=== PATIENT | female | born 1955 | race Caucasian/White ===

== ENCOUNTER 2017-01-14 13:47 | Emergency (ER) | payer MEDICAID ==
[~2017-01-14] VITALS: Ht 170.2 cm; Wt 65.0 kg
[2017-01-14 13:54] VITALS: PULSE 94; RESP 14; TEMP 98.4; O2SAT 98
[2017-01-14 14:15] VITALS: RESP 18; O2SAT 97
[2017-01-14] MEDS ORDERED: METOCLOPRAMIDE HCL 10 MG/2 ML VIAL IVP ONE (14:15)
[2017-01-14] MEDS ORDERED: SODIUM CHLORIDE 0.9% FLUSH 5 ML FLUSH IVF PRN (14:15)
[2017-01-14] MEDS ORDERED: diphenhydrAMINE HCL 50 MG/ML VIAL IVP ONE (14:15)
[2017-01-14 14:40] LABS: AUTOMATED NEUTROPHIL # 13.4 TH/MM3 (1.8-7.7); BASOPHIL % 0.2 % (0.0-2.0); HEMATOCRIT 40.7 % (35.0-46.0); HEMO FLAGS DIFF FINAL; LYMPHOCYTE # 0.9 TH/MM3 (1.0-4.8); MEAN CELL VOLUME 92.6 FL (80.0-100.0); MEAN CORPUSCULAR HEMOGLOBIN 32.1 PG (27.0-34.0); MEAN CORPUSCULAR HGB CONC 34.7 % (32.0-36.0); MONO % 3.2 % (0.0-8.0); NEUT % 90.6 % (16.0-70.0); PLATELET COUNT 330 TH/MM3 (150-450); WHITE BLOOD COUNT 14.8 TH/MM3 (4.0-11.0)
[2017-01-14 15:14] VITALS: BP 129/68; PULSE 96; RESP 18; O2SAT 98
[2017-01-14] MEDS ORDERED: SODIUM CHLOR 0.9% 1000 ML INJ 1,000 ML IV ONE (15:15)
[2017-01-14 15:17] LABS: ALKALINE PHOSPHATASE 104 U/L (45-117); ALT (GPT) 24 U/L (10-53); ANION GAP 10 MEQ/L (5-15); AST (GOT) 44 U/L (15-37); BICARBONATE 24.8 MEQ/L (21.0-32.0); BLOOD UREA NITROGEN 9 MG/DL (7-18); CHLORIDE 101 MEQ/L (98-107); GLOMERULAR FILTRATION RATE 55 ML/MIN (>89); SODIUM (NA) 136 MEQ/L (136-145); TOTAL BILIRUBIN ADULT 0.7 MG/DL (0.2-1.0)
[2017-01-14 15:19] LABS: POTASSIUM 4.5 MEQ/L (3.5-5.1)
--- NOTE | 2017-01-14 15:58 | PD ---
HPI Chief Complaint: GI Complaint Time Seen by Provider: 14:12 Travel History International Travel<30 days: No Contact w/Intl Traveler<30days: No Traveled to known affect area: No History of Present Illness HPI 61-year-old female with history of anxiety and "chronic vomiting syndrome" here with complaint of nausea and vomiting. Patient has had one day of intractable nausea, vomiting. Patient is here with sister, who states the patient actually has not been vomiting but rather dry heaving. No hematemesis. Epigastric abdominal pain. Patient states that this is typical of her "chronic vomiting syndrome". She recently moved from [place] and does not have any local physicians. She has had previous endoscopy but is unable to tell me how long ago this was and what the findings were. She denies any history of peptic ulcer disease. PFS Past Medical History Anxiety: Yes Cardiovascular Problems: Yes Diminished Hearing: No Gastrointestinal Disorders: Yes (CHRONIC VOMITING) Hypertension: Yes Psychiatric: Yes Tetanus Vaccination: > 5 Years Influenza Vaccination: No ?: Not Tubal Ligation: Yes Past Surgical History Tonsillectomy: Yes Social History Alcohol Use: Yes (WINE ) Tobacco Use: No Substance Use: No Allergies-Medications (Allergen,Severity, Reaction): Coded Allergies: Codeine (Verified Allergy, Severe, VOMITING, 01/14/17) Reported Meds & Prescriptions Reported Meds & Active Scripts Active Phenergan (Promethazine HCl) 25 Mg Tab 25 Mg PO Q6H PRN Review of Systems ROS Limitations: Poor Historian Except as stated in HPI: all other systems reviewed are Neg Physical Exam Exam Limitations: Poor Historian Narrative GENERAL: Adult female appearing older than stated age dry heaving and moaning in no acute distress SKIN: Warm and dry. HEAD: Normocephalic. EYES: No scleral icterus. No injection or drainage. ENT: Mucous membranes pink and moist. NECK: Supple CARDIOVASCULAR: Regular rate and rhythm. No murmur appreciated. RESPIRATORY: No accessory muscle use. Clear to auscultation. Breath sounds equal bilaterally. GASTROINTESTINAL: Abdomen soft, non-tender, nondistended. MUSCULOSKELETAL: Normal gait NEUROLOGICAL: Awake and alert. Motor grossly within normal limits. Normal speech. PSYCHIATRIC: Appropriate mood and affect; insight and judgment normal. Data Data Last Documented VS Vital Signs Date Time Temp Pulse Resp B/P Pulse Ox O2 Delivery O2 Flow Rate FiO2 01/14/17 15:14 96 18 129/68 98 Room Air 01/14/17 13:54 98.4 Orders Complete Blood Count With Diff (01/14/17 14:12) Comprehensive Metabolic Panel (01/14/17 14:12) Lipase (01/14/17 14:12) Iv Access Insert/Monitor (01/14/17 14:12) Ecg Monitoring (01/14/17 14:12) Oximetry (01/14/17 14:12) Sodium Chloride 0.9% Flush (Ns Flush) (01/14/17 14:15) Electrocardiogram (01/14/17 14:12) Diphenhydramine Inj (Benadryl Inj) (01/14/17 14:15) Metoclopramide Inj (Reglan Inj) (01/14/17 14:15) Sodium Chlor 0.9% 1000 Ml Inj (Ns 1000 M (01/14/17 15:15) Labs Laboratory Tests Test 01/14/17 14:00 White Blood Count 14.8 TH/MM3 Red Blood Count 4.40 MIL/MM3 Hemoglobin 14.1 GM/DL Hematocrit 40.7 % Mean Corpuscular Volume 92.6 FL Mean Corpuscular Hemoglobin 32.1 PG Mean Corpuscular Hemoglobin 34.7 % Concent Red Cell Distribution Width 14.0 % Platelet Count 330 TH/MM3 Mean Platelet Volume 9.3 FL Neutrophils (%) (Auto) 90.6 % Lymphocytes (%) (Auto) 6.0 % Monocytes (%) (Auto) 3.2 % Eosinophils (%) (Auto) 0.0 % Basophils (%) (Auto) 0.2 % Neutrophils # (Auto) 13.4 TH/MM3 Lymphocytes # (Auto) 0.9 TH/MM3 Monocytes # (Auto) 0.5 TH/MM3 Eosinophils # (Auto) 0.0 TH/MM3 Basophils # (Auto) 0.0 TH/MM3 CBC Comment DIFF FINAL Differential Comment Sodium Level 136 MEQ/L Potassium Level 4.5 MEQ/L Chloride Level 101 MEQ/L Carbon Dioxide Level 24.8 MEQ/L Anion Gap 10 MEQ/L Blood Urea Nitrogen 9 MG/DL Creatinine 1.02 MG/DL Estimat Glomerular Filtration 55 ML/MIN Rate Random Glucose 184 MG/DL Calcium Level 9.0 MG/DL Total Bilirubin 0.7 MG/DL Aspartate Amino Transf 44 U/L (AST/SGOT) Alanine Aminotransferase 24 U/L (ALT/SGPT) Alkaline Phosphatase 104 U/L Total Protein 8.2 GM/DL Albumin 4.1 GM/DL Lipase 22 U/L MDM Medical Decision Making Medical Screen Exam Complete: Yes Emergency Medical Condition: Yes Medical Record Reviewed: Yes Differential Diagnosis 61-year-old female with history of "chronic vomiting syndrome", anxiety here with intractable nausea, vomiting, dry heaving for the last day. Differential includes cyclic vomiting syndrome, gastroparesis, gastritis, pancreatitis, hepatobiliary pathology, peptic ulcer disease, cannabis hyperemesis. Narrative Course Patient placed on monitor, IV established and blood obtained. Twelve-lead EKG shows sinus rhythm without notable ST abnormalities, normal intervals. Patient given 1 L normal saline bolus, 50 mg Benadryl, 10 mg Reglan. CBC, CMP, lipase were obtained and unremarkable. Patient was able to tolerate oral challenge and will be discharged home with antiemetics and outpatient follow-up. Patient felt improved. Only requesting something for acid reflux and was given GI cocktail. 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 Follow-up with GI physician and primary care to establish care locally. Med/Other Pt SpecificInfo: Prescription(s) given Scripts Promethazine (Phenergan)25 Mg Tab25 Mg PO Q6H PRN (Nausea/Vomiting) #10 TAB Ref 0 Prov:Yelena Burgess MD 01/14/17 Disposition: 01 DISCHARGE HOME Condition: Stable Yelena Burgess MD Jan 14, 2017 15:58
[2017-01-14] MEDS ORDERED: PROM25TA5 PO (16:01)
[2017-01-14] MEDS ORDERED: ALUMINUM/MAGNESIUM/SIMETH 30 ML CUP PO ONE (16:15)
[2017-01-14] MEDS ORDERED: LIDOCAINE VISCOUS 2% SOLN 15 ML UDC PO ONE (16:15)
[2017-01-14] MEDS ORDERED: PROMETHAZINE INJ 25 MG/ML VIAL IM ONE (17:15)
[2017-01-14 17:23] VITALS: BP 130/71; TEMP 97
--- NOTE | 2017-01-15 09:15 | EKG ---
Date Performed: 01/14/2017 Time Performed: 14:25:46 PTAGE: 61 years EKG: Sinus rhythm WITH SINUS ARRHYTHMIA NORMAL ECG NO PREVIOUS TRACING DOCTOR: Gurvinder Lyons Interpretating Date/Time 01/15/2017 09:14:16
== END 2017-01-14 17:24 | disposition home or self-care (01) ==
LOC: NEPE 13:47
DX: G43.A0 Cyclical vomiting, in migraine, not intractable (principal); I49.8 Other specified cardiac arrhythmias; I10 Essential (primary) hypertension
CPT/HCPCS: 80053; 83690; 85025; 93005; 96361; 96372; 96374; 96375; 99284; J1200; J2550; J2765; J7030